=== PATIENT | male | born 1965 | race Caucasian/White ===

== ENCOUNTER 2016-12-30 12:01 | Emergency (ER) | payer MEDICAID ==
[2016-12-30 12:09] VITALS: TEMP 98.9
--- NOTE | 2016-12-30 12:40 | ED PDOC ---
Arrival/HPI - General Chief Complaint: Finger,Hand,&Wrist Time Seen by Provider: 12/30/16 12:24 Historian: Patient - History of Present Illness Narrative History of Present Illness (Text): 12/30/16 13:28 51-year-old male presents today with right thumb pain and swelling 5 days. Patient states he closed his finger in a car door and thought that the pain would go away but it did not. Patient states the swelling has decreased. He is complaining of pain over the IP joint of the thumb. He denies numbness weakness or tingling in the extremity. No chest pain or shortness of breath. No medications have been taken for pain at home. Patient complaining of pain with range of motion. Time/Duration: Other (5 days) Symptom Onset: Sudden Symptom Course: Improving Quality: Throbbing Severity Level: 4 Past Medical History - Provider Review Nursing Documentation Reviewed: Yes - Travel History Have you recently traveled outside [place] w/in the past 3 mons?: No - Infectious Disease Hx of Infectious Diseases: None - Tetanus Immunization Tetanus Immunization: Unknown - Cardiac Hx Cardiac Disorders: No - Pulmonary Hx Respiratory Disorders: No - Neurological Other/Comment: BRAIN TUMOR - HEENT Hx HEENT Disorder: No - Renal Hx Renal Disorder: No - Endocrine/Metabolic Hx Endocrine Disorders: No - Hematological/Oncological Hx Blood Disorders: No - Integumentary Hx Dermatological Disorder: No - Musculoskeletal/Rheumatological Hx Musculoskeletal Disorders: No - Gastrointestinal Hx Gastrointestinal Disorders: No - Genitourinary/Gynecological Hx Genitourinary Disorders: No - Psychiatric Hx Psychophysiologic Disorder: No Hx Substance Use: No Family/Social History - Physician Review Nursing Documentation Reviewed: Yes Family/Social History: Unknown Family HX Smoking Status: Never Smoked Hx Alcohol Use: No Hx Substance Use: No Allergies/Home Meds Allergies/Adverse Reactions: Allergies No Known Allergies Allergy (Verified 12/30/16 12:06) Review of Systems - Review of Systems Constitutional: absent: Fatigue, Fevers Respiratory: absent: SOB, Cough Cardiovascular: absent: Chest Pain, Palpitations Gastrointestinal: absent: Abdominal Pain, Nausea, Vomiting Musculoskeletal: Arthralgias. absent: Back Pain, Neck Pain Skin: absent: Rash, Pruritis, Skin Lesions Neurological: absent: Headache, Dizziness Physical Exam Vital Signs Reviewed: Yes Vital Signs Temp Pulse Resp BP Pulse Ox 12/30/16 12:08 98.9 F 55 L 16 125/79 98 Temperature: Afebrile Blood Pressure: Normal Pulse: Regular Respiratory Rate: Normal Appearance: Positive for: Well-Appearing, Non-Toxic, Comfortable Pain Distress: None Mental Status: Positive for: Alert and Oriented X 3 - Systems Exam Head: Present: Atraumatic Mouth: Present: Moist Mucous Membranes Neck: Present: Normal Range of Motion Respiratory/Chest: Present: Clear to Auscultation, Good Air Exchange. No: Respiratory Distress, Accessory Muscle Use Cardiovascular: Present: Regular Rate and Rhythm, Normal S1, S2. No: Murmurs Upper Extremity: Present: NORMAL PULSES, Tenderness (right thumb; + ttp over IP joint of thumb; limited rom of thumb at IP; sensation and distal pulses intact; no eccymosis; no erythema, + edema. cap refill <2. ), Swelling, Neurovascularly Intact, Capillary Refill < 2s. No: Normal ROM, Erythema, Deformity Neurological: Present: GCS=15 Skin: Present: Warm, Dry, Normal Color. No: Rashes Psychiatric: Present: Alert, Oriented x 3 Medical Decision Making ED Course and Treatment: 12/30/16 13:24 Patient nontoxic well-appearing in no distress with stable vital signs. Patient with right thumb pain 5 days status post closing finger in car door X-rays of the right thumb; FINDINGS: BONES: There is a nondisplaced comminuted intra-articular fracture of the 1st distal phalanx JOINTS: Normal. No osteoarthritic changes. SOFT TISSUES: Normal. OTHER FINDINGS: None. IMPRESSION: There is a nondisplaced comminuted intra-articular fracture of the 1st distal phalanx motrin po Patient placed in finger splint. I discussed all results with patient and his daughter. I advised to followup with the orthopedist for the next 2 days. Return if symptoms worsen persist or new symptoms develop Patient verbalizes understanding of discharge instructions and need for immediate followup. Impression: thumb fracture Motrin every 6 hours as needed for pain Use finger splint. Rest, ice, compression, elevation Followup with the orthopedist within the next 2 days Followup with primary care physician within the next 2 days Return if any other concerning symptoms develop - RAD Interpretation Radiology Orders: 12/30/16 12:24 HAND RIGHT THUMB [RAD] Stat - Medication Orders Current Medication Orders: Discontinued Medications Ibuprofen (Motrin Tab) 600 mg PO STAT STA Stop: 12/30/16 12:25 Last Admin: 12/30/16 12:30 Dose: Not Given Non-Admin Reason: Patient Refused Disposition/Present on Arrival - Present on Arrival Any Indicators Present on Arrival: No History of DVT/PE: No History of Uncontrolled Diabetes: No Urinary Catheter: No History of Decub. Ulcer: No History Surgical Site Infection Following: None - Disposition Have Diagnosis and Disposition been Completed?: Yes Diagnosis: Fracture of thumb Disposition: HOME/ ROUTINE Disposition Time: 12:58 Patient Plan: Discharge Patient Problems: Current Active Problems Problem Status Onset Fracture of thumb Acute Condition: GOOD Discharge Instructions (ExitCare): Thumb Fracture (ED) Additional Instructions: Motrin every 6 hours as needed for pain Use finger splint. Rest, ice, compression, elevation Followup with the orthopedist within the next 2 days Followup with primary care physician within the next 2 days Return if any other concerning symptoms develop Prescriptions: Ibuprofen [Motrin] 600 mg PO Q6H PRN #20 tab PRN Reason: pain/fever reduction Referrals: Anna Marie Shah MD [Primary Care Provider] - Follow up with primary Eyal Manriquez MD [Staff Provider] - Follow up with primary Forms: WORK NOTE
--- NOTE | 2016-12-30 12:47 | RAD ---
PROCEDURE: Right Hand Radiographs. HISTORY: closed finger in car door COMPARISON: None. FINDINGS: BONES: There is a nondisplaced comminuted intra-articular fracture of the 1st distal phalanx JOINTS: Normal. No osteoarthritic changes. SOFT TISSUES: Normal. OTHER FINDINGS: None. IMPRESSION: There is a nondisplaced comminuted intra-articular fracture of the 1st distal phalanx
[2016-12-30 13:37] VITALS: BP 138/77; PULSE 57; RESP 18; O2SAT 100
== END 2016-12-30 13:40 | disposition home or self-care (01) ==
LOC: ED 12:01
DX: S62.524A Nondisplaced fracture of distal phalanx of right thumb, initial encounter for closed fracture (principal); W23.0XXA Caught, crushed, jammed, or pinched between moving objects, initial encounter